=== PATIENT | male | born 1970 | race Caucasian/White ===

== ENCOUNTER 2019-08-06 16:14 | Emergency (ER) | payer OTHER ==
[~2019-08-06] VITALS: Ht 177.8 cm; Wt 181.8 kg
[2019-08-06 16:16] VITALS: BP 101/55; PULSE 65
[2019-08-06 16:40] LABS: BASO % 0.3 % (0.0-2.0); EOS # 0.2 (0.0-0.7); EOS % 2.6 % (0-4.0); GRAN # 5.4 (1.4-6.5); GRAN % 74.1 % (42.2-75.2); LYMPH # 1.3 (1.2-3.4); LYMPH % 17.3 % (20.0-51.0); MEAN CELL VOLUME 103 fl (80.0-100.0); MEAN CORPUSCULAR HGB CONC 30 g/dl (33.0-37.0); MEAN PLATELET VOLUME 10.6 fl (7.4-10.4); MONO # 0.4 (0.1-0.6); PLATELET COUNT 100 K/mm3 (130-400); RED BLOOD COUNT 1.51 M/mm3 (4.20-5.60)
[2019-08-06 16:48] LABS: ALANINE AMINOTRANSFERASE 33 U/L (21-72); ALKALINE PHOSPHATASE < 20 U/L (50-136); ANION GAP 18 mmol/L (7-16); AST,SGOT 35 U/L (15-37); BILIRUBIN,TOTAL < 0.1 mg/dL (0.0-1.0); BLOOD UREA NITROGEN 5 mg/dL (9-20); CALCIUM 6.5 mg/dL (8.4-10.2); CHLORIDE 107 mmol/L (98-107); CREATININE, serum 0.33 (0.66-1.25); GLUCOSE 67 mg/dL (74-106); LIPASE 46 U/L (23-300); SODIUM 133 mmol/L (137-145); TOTAL PROTEIN < 2.0 gm/dL (6.4-8.2)
[2019-08-06 16:55] LABS: CARBON DIOXIDE 8 mmol/L (22-30)
[2019-08-06 16:56] LABS: ALBUMIN < 1.0 gm/dL (3.5-5.0)
[2019-08-06 17:13] LABS: HEMATOCRIT 15.6 % (42.0-52.0); HEMOGLOBIN 4.7 g/dl (13.5-18.0); MEAN CORPUSCULAR HEMOGLOBIN 31 pg (27.0-31.0)
[2019-08-06 17:21] LABS: INR 2.1 (0.8-3.0); PROTHROMBIN TIME 25.1 SECONDS (9.7-12.8)
== END 2019-08-06 17:30 | disposition short-term general hospital (02) ==
LOC: COL.ER 16:14
PROVIDERS: Emergency Medicine
DX: S06.360A Traumatic hemorrhage of cerebrum, unspecified, without loss of consciousness, initial encounter (principal); S42.302A Unspecified fracture of shaft of humerus, left arm, initial encounter for closed fracture; S81.812A Laceration without foreign body, left lower leg, initial encounter; S81.811A Laceration without foreign body, right lower leg, initial encounter; I95.9 Hypotension, unspecified; V49.50XA Passenger injured in collision with unspecified motor vehicles in traffic accident, initial encounter
CPT/HCPCS: J7030; P9016